=== PATIENT | female | born 1990 | race Caucasian/White ===

== ENCOUNTER → 2017-08-16 | Outpatient (CLI) | payer BC ==
[~2017-08-16] MED LIST: B-COTAB18 PO; CHOL1CHW10 PO; GLAT1INJ SQ; LEVOIUD VAGRING; MULT-506 PO; OMEGCAP2 PO
== END | disposition home or self-care (01) ==
LOC: C.LAB 09:42
PROVIDERS: ATTEND Nutritionist
DX: R53.83 Other fatigue (principal)